=== PATIENT | male | born 1990 | race Caucasian/White ===

== ENCOUNTER 2022-01-31 10:20 | Emergency (ER) | payer SELFPAY ==
[2022-01-31 11:53] LABS: ACETAMINOPHEN <2.0 ug/mL; BLOOD UREA NITROGEN,BUN 13 mg/dL (7.0-18.0); CARBON DIOXIDE,CO2 25.7 mmol/L (21.0-32.0); CHLORIDE,CL 101 mmol/L (98-107); GLUCOSE RANDOM 94 mg/dL (74-106); POTASSIUM,K 3.2 mmol/L (3.5-5.1); SODIUM,NA 137 mmol/L (136-148)
[2022-01-31 11:57] LABS: ESTIMATED GFR 82 mL/min (>60)
[2022-01-31] MEDS ORDERED: Potassium Chloride 10% 20 MEQ/15 ML Soln 30 ML UD Cup PO ONE (15:05)
[2022-01-31] MEDS ORDERED: Magnesium Oxide 400 MG Tab PO ONE (15:05)
== END 2022-01-31 15:28 | disposition home or self-care (01) ==
LOC: MW.ED 10:20
DX: F15.10 Other stimulant abuse, uncomplicated (principal); F11.10 Opioid abuse, uncomplicated; E83.42 Hypomagnesemia; E87.6 Hypokalemia; Z20.822 Contact with and (suspected) exposure to COVID-19
CPT/HCPCS: 36415; 80053; 80143; 80179; 80307; 83735; 84443; 85025; 93005; 99285; U0002